=== PATIENT | female | born 1950 ===

== ENCOUNTER 2019-05-18 21:12 | Inpatient (IN) | payer MEDICARE, OTHER ==
[~2019-05-18] VITALS: Ht 172.7 cm; Wt 120.0 kg
[~2019-05-18 21:12] MED LIST: AMOX-291 PO; AMOX1TAB12 PO; ASCO500C2 PO; ASPI-496 PO; CEFD300C37 PO; CHOL10003 PO; INSU100I29 SQ; INSU100V11 SQ-INSULIN; INSU100V13 SQ-INSULIN; LISI-170 PO; MELO15TA24 PO; METF-365 PO; MORP20CA18 PO; NAPR-685; NPH,100V5; OXYB5TAB10 PO; OXYC5TAB3 PO; SULF-169 PO; TRAM50TA2 PO
[2019-05-18 22:10] LABS: BASOPHILS % (AUTO) 0 % (0-1); EOSINOPHILS % (AUTO) 0 % (1-7); LYMPHOCYTES # (AUTO) 0.36 x10^3/uL (1-3.4); LYMPHOCYTES % (AUTO) 3 % (22-44); MD NO; MEAN CORPUSCULAR HGB CONC 33.3 g/dL (32.4-35.8); MEAN CORPUSCULAR VOLUME 90.1 fL (80-100); MEAN PLATELET VOLUME 8.1 fL (7.4-10.4); MONOCYTES # (AUTO) 0.46 x10^3/uL (0.2-0.8); MONOCYTES % (AUTO) 3 % (2-9); NEUTROPHILS # (AUTO) 13.57 x10^3/uL (1.8-6.8); NEUTROPHILS % (AUTO) 94 % (42-75); PLATELET COUNT 161 x10^3/uL (130-400); RED BLOOD COUNT 5.21 x10^6/uL (3.82-5.3); RED CELL DISTRIBUTION WIDTH 14.2 % (9.6-15.2)
[2019-05-18 22:21] LABS: ANION GAP 7 mmol/L (5-15); CALCIUM 8.8 mg/dL (8.5-10.1); CHLORIDE 105 mmol/L (98-107); CREATININE 1.24 mg/dL (0.55-1.02)
[2019-05-18] MEDS ORDERED: LEVEMIR (22:28)
[2019-05-18] MEDS ORDERED: LISINOPRIL PO (22:28)
[2019-05-18] MEDS ORDERED: NOVOLIN (22:28)
[2019-05-18] MEDS ORDERED: TRAM50TA2 PO (22:28)
--- NOTE | 2019-05-18 22:41 | NUR ---
IV STARTED. PT IN HOSPITAL GOWN, ORDERED ABX STARTED, BLOOD CX PREVIOUSLY DRAWN. PT ON CARDIAC AND VITALS MONTIORS. FAMILY AT [facility]
[2019-05-18] MEDS ORDERED: CEFTRIAXONE PMX 1GM/50ML 50 ML ONE (22:46)
[2019-05-18] MEDS ORDERED: CEFTRIAXONE PMX 1GM/50ML 50 ML IV ONE (23:00)
[2019-05-18] MEDS ORDERED: VANCOMYCIN 2,200 MG in SODIUM CHLORIDE 0.9% 500 ML IV ONE (23:00)
[2019-05-18] MEDS ORDERED: VANCOMYCIN PER PHARMACY MC PRN (23:00)
[2019-05-18] MEDS ORDERED: SODIUM CHLORIDE 0.9% 1,000ML IVBOLUS ONE (23:00)
[2019-05-18] MEDS ORDERED: SODIUM CHLORIDE FLUSH 10ML SYR IVF ONE (23:00)
--- NOTE | 2019-05-18 23:30 | NUR ---
NO LACTIC ACID ORDERED AT THIS TIME. ERP MADE AWARE, NO ORDER PLACED, STATED PT DOESN'T NEED AT THIS TIME. 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 WILL CONTINUE TO MONITOR.
--- NOTE | 2019-05-19 00:05 | NUR ---
REPORT TO DOUGLAS WALDEN
--- NOTE | 2019-05-19 00:17 | NUR ---
US BEING DONE AT BEDSIDE.
[2019-05-19] MEDS ORDERED: PROMETHAZINE 25 MG/ML, 1ML IM PRN (00:30)
[2019-05-19] MEDS ORDERED: SODIUM CHLORIDE 0.9% 1,000 ML IV SCH (00:30)
[2019-05-19] MEDS ORDERED: ONDANSETRON 2MG/ML, 2ML IVPush PRN (00:30)
[2019-05-19] MEDS ORDERED: OXYcodone IR 5MG TABLET PO PRN (00:30)
[2019-05-19] MEDS ORDERED: ONDANSETRON ODT 4 MG PO PRN (00:30)
[2019-05-19] MEDS: INSULIN GLARGINE 100 UNITS/ML, PEN SQ-INSULIN SCH ×3 (00:30→22:25)
[2019-05-19] MEDS ORDERED: BISACODYL 10 MG SUPP PR PRN (00:30)
[2019-05-19] MEDS ORDERED: hydrALAzine 20 MG/ML, 1ML IVPush PRN (00:30)
[2019-05-19] MEDS ORDERED: ACETAMINOPHEN 325 MG TABLET PO PRN (00:30)
[2019-05-19] MEDS ORDERED: POLYETHYLENE GLYCOL 17 GM PACKET PO PRN (00:30)
[2019-05-19] MEDS ORDERED: DOCUSATE 100 MG CAPSULE PO PRN (00:30)
[2019-05-19] MEDS ORDERED: VANCOMYCIN PER PHARMACY MC PRN (00:30)
[2019-05-19 00:45] VITALS: BP 135/74
[2019-05-19 00:51] LABS: FREE T4 (FREE THYROXINE) 1.1 ng/dL (0.76-1.46)
[2019-05-19 01:11] LABS: HCT (SEDRATE) 46.9 % (34.6-47.8)
[2019-05-19] MEDS: morphine SULFATE 10 MG/ML, 1ML IVPush PRN ×3 (01:15→18:43)
[2019-05-19] MEDS: INSULIN LISPRO 100 UNITS/ML, PEN SQ-INSULIN SCH ×5 (01:53→22:27)
[2019-05-19] MEDS: ENOXAPARIN 40 MG/0.4 ML SQ SCH (01:53)
[2019-05-19] MEDS: PIPERACILLIN/TAZO/PMX 3.375GM 50 ML IV SCH ×4 (01:55→20:17)
[2019-05-19 06:13] LABS: BASOPHILS # (AUTO) 0.03 x10^3/uL (0-0.1); BASOPHILS % (AUTO) 0 % (0-1); EOSINOPHILS # (AUTO) 0.05 x10^3/uL (0-0.4); EOSINOPHILS % (AUTO) 0 % (1-7); LYMPHOCYTES % (AUTO) 8 % (22-44); MD NO; MEAN CORPUSCULAR HEMOGLOBIN 30.3 pg (27.0-34.8); MEAN CORPUSCULAR HGB CONC 33.5 g/dL (32.4-35.8); MEAN CORPUSCULAR VOLUME 90.5 fL (80-100); MONOCYTES # (AUTO) 0.63 x10^3/uL (0.2-0.8); MONOCYTES % (AUTO) 5 % (2-9); NEUTROPHILS # (AUTO) 11.26 x10^3/uL (1.8-6.8); NEUTROPHILS % (AUTO) 87 % (42-75); PLATELET COUNT 149 x10^3/uL (130-400); RED BLOOD COUNT 4.42 x10^6/uL (3.82-5.3); RED CELL DISTRIBUTION WIDTH 14.5 % (9.6-15.2)
[2019-05-19 06:29] LABS: CHLORIDE 107 mmol/L (98-107)
[2019-05-19] MEDS ORDERED: PHARMACOKINETIC MONITORING MC PRN (06:30)
[2019-05-19] MEDS ORDERED: PHARMACOKINETIC CONSULTATION MC ONE (06:30)
[2019-05-19 06:35] VITALS: BP 117/65
[2019-05-19 06:36] LABS: ALANINE AMINOTRANSFERASE 31 U/L (12-78); ALBUMIN 2.4 g/dL (3.4-5.0); ALKALINE PHOSPHATASE 124 U/L (45-117); ANION GAP 6 mmol/L (5-15); BILIRUBIN,TOTAL 1.2 mg/dL (0.2-1.0); CHOL/HDL RATIO 2.1; CHOLESTEROL, TOTAL 126 mg/dL (140-239); CREATININE 1.07 mg/dL (0.55-1.02); HDL CHOL % 48 % (28-40); HDL CHOLESTEROL (DIRECT) 60 mg/dL (40-60); LDL CHOLESTEROL,CALCULATED 53 mg/dL (54-169); LDL/HDL RATIO 0.9 (0.5-3.0); TOTAL PROTEIN 5.8 g/dL (6.4-8.2); TRIGLYCERIDES 63 mg/dL (50-200); VLDL CHOLESTEROL 13 mg/dL (0-25)
[2019-05-19] MEDS ORDERED: MAGNESIUM SULFATE PMX 2GM/50ML 50 ML IV ONE (08:00)
[2019-05-19 11:01] VITALS: BP 120/60
[2019-05-19 13:19] VITALS: BP 134/64
[2019-05-19] MEDS ORDERED: OXYB15TA PO (14:09)
[2019-05-19] MEDS ORDERED: ASPI-515 PO (14:09)
[2019-05-19] MEDS ORDERED: AMLO10TA8 PO (14:09)
[2019-05-19] MEDS ORDERED: ASCO500C10 PO (14:09)
[2019-05-19] MEDS ORDERED: LISI-420 PO (14:09)
[2019-05-19] MEDS ORDERED: METF500S5 PO (14:09)
[2019-05-19 19:21] VITALS: BP 145/68
[2019-05-19] MEDS: VANCOMYCIN 2,200 MG in SODIUM CHLORIDE 0.9% 500 ML IV SCH (22:01)
[2019-05-20 01:47] VITALS: BP 156/73
[2019-05-20] MEDS: PIPERACILLIN/TAZO/PMX 3.375GM 50 ML IV SCH ×4 (02:41→20:10)
[2019-05-20] MEDS: ENOXAPARIN 40 MG/0.4 ML SQ SCH (02:41)
[2019-05-20 07:00] VITALS: BP 147/76
[2019-05-20] MEDS: INSULIN GLARGINE 100 UNITS/ML, PEN SQ-INSULIN SCH ×2 (08:00→20:11)
[2019-05-20] MEDS: morphine SULFATE 10 MG/ML, 1ML IVPush PRN (08:02)
[2019-05-20] MEDS: INSULIN LISPRO 100 UNITS/ML, PEN SQ-INSULIN SCH ×4 (08:02→20:09)
[2019-05-20 12:33] VITALS: BP 125/71
[2019-05-20 19:05] VITALS: BP 152/79
[2019-05-20] MEDS: VANCOMYCIN 2,200 MG in SODIUM CHLORIDE 0.9% 500 ML IV SCH (22:04)
[2019-05-21 01:59] VITALS: BP 153/77
[2019-05-21] MEDS: ENOXAPARIN 40 MG/0.4 ML SQ SCH (02:03)
[2019-05-21] MEDS: PIPERACILLIN/TAZO/PMX 3.375GM 50 ML IV SCH ×2 (02:05→08:01)
[2019-05-21 07:03] VITALS: BP 139/81
[2019-05-21] MEDS: INSULIN LISPRO 100 UNITS/ML, PEN SQ-INSULIN SCH ×4 (07:56→21:22)
[2019-05-21] MEDS: INSULIN GLARGINE 100 UNITS/ML, PEN SQ-INSULIN SCH ×2 (08:50→21:00)
[2019-05-21 14:01] VITALS: BP 131/85
[2019-05-21] MEDS: ENOXAPARIN 30 MG/0.3 ML SQ SCH (14:18)
[2019-05-21 19:48] VITALS: BP 155/83
[2019-05-21] MEDS: AMOXICILLIN/CLAV 875-125MG TABLET PO SCH (21:21)
[2019-05-22 01:29] VITALS: BP 196/138
[2019-05-22 01:46] VITALS: BP 167/97
[2019-05-22] MEDS: ENOXAPARIN 30 MG/0.3 ML SQ SCH (02:45)
[2019-05-22 03:17] VITALS: BP 158/88
[2019-05-22 04:34] LABS: BASOPHILS # (AUTO) 0.02 x10^3/uL (0-0.1); BASOPHILS % (AUTO) 0 % (0-1); EOSINOPHILS # (AUTO) 0.16 x10^3/uL (0-0.4); EOSINOPHILS % (AUTO) 3 % (1-7); LYMPHOCYTES # (AUTO) 1.32 x10^3/uL (1-3.4); LYMPHOCYTES % (AUTO) 28 % (22-44); MD NO; MEAN CORPUSCULAR HEMOGLOBIN 29.8 pg (27.0-34.8); MEAN CORPUSCULAR HGB CONC 33.3 g/dL (32.4-35.8); MEAN CORPUSCULAR VOLUME 89.7 fL (80-100); MEAN PLATELET VOLUME 7.5 fL (7.4-10.4); MONOCYTES # (AUTO) 0.49 x10^3/uL (0.2-0.8); MONOCYTES % (AUTO) 10 % (2-9); NEUTROPHILS # (AUTO) 2.75 x10^3/uL (1.8-6.8); NEUTROPHILS % (AUTO) 58 % (42-75); PLATELET COUNT 175 x10^3/uL (130-400); RED BLOOD COUNT 4.27 x10^6/uL (3.82-5.3); RED CELL DISTRIBUTION WIDTH 14.7 % (9.6-15.2)
[2019-05-22 04:38] LABS: ALBUMIN 2.3 g/dL (3.4-5.0); ANION GAP 3 mmol/L (5-15); CALCIUM 8.3 mg/dL (8.5-10.1); CHLORIDE 108 mmol/L (98-107); CREATININE 0.81 mg/dL (0.55-1.02)
[2019-05-22 06:50] VITALS: BP 136/76
[2019-05-22] MEDS: INSULIN LISPRO 100 UNITS/ML, PEN SQ-INSULIN SCH ×2 (08:29→12:28)
[2019-05-22] MEDS: AMOXICILLIN/CLAV 875-125MG TABLET PO SCH (08:30)
[2019-05-22] MEDS: INSULIN GLARGINE 100 UNITS/ML, PEN SQ-INSULIN SCH (08:30)
[2019-05-22] MEDS ORDERED: AMOX1TAB12 PO (11:45)
[2019-05-22] MEDS ORDERED: FLU VACC QS2019-20 36MOS UP/PF 0.5 ML IM-VACC ONE (13:00)
[2019-05-22 13:44] VITALS: BP 151/78
== END 2019-05-22 15:35 | disposition home or self-care (01) | DRG 871 ==
LOC: ED 22:00 → EDIP 23:30 → 3N 05-19 01:05 → DCLOUNGE 05-22 15:30
PROVIDERS: ADMIT Internal Medicine; ATTEND Internal Medicine
DX: A41.9 Sepsis, unspecified organism (principal); N17.0 Acute kidney failure with tubular necrosis; L03.116 Cellulitis of left lower limb; Z68.41 Body mass index [BMI] 40.0-44.9, adult; E11.65 Type 2 diabetes mellitus with hyperglycemia; E66.01 Morbid (severe) obesity due to excess calories; I10 Essential (primary) hypertension; I87.2 Venous insufficiency (chronic) (peripheral); Z79.4 Long term (current) use of insulin; Z90.710 Acquired absence of both cervix and uterus; Z90.49 Acquired absence of other specified parts of digestive tract
CPT/HCPCS: 36415; 80048; 80053; 80061; 80069; 82962; 83036; 83735; 84439; 84443; 85025; 85651; 86140; 87040; 90686; 93005; 96365; 96375; G0378; J0696; J1650; J2543; J3370; J1815; J2270; J3475; J7030; J7040

== ENCOUNTER 2019-08-12 10:05 | Inpatient (IN) | payer MEDICARE ==
[~2019-08-12] VITALS: Ht 172.7 cm; Wt 115.0 kg
[~2019-08-12 10:05] MED LIST changes: +AMLO10TA8 PO; +ASCO500C10 PO; +ASPI-515 PO; +LEVEMIR; +LISI-420 PO; +LISINOPRIL PO; +METF500S5 PO; +NOVOLIN; +OXYB15TA PO
[2019-08-12] MEDS ORDERED: METFORMIN (10:23)
[2019-08-12] MEDS ORDERED: LEVEMIR (10:23)
[2019-08-12] MEDS ORDERED: DOCUSATE (10:23)
[2019-08-12] MEDS ORDERED: NOVOLIN (10:23)
[2019-08-12] MEDS ORDERED: SODIUM CHLORIDE 0.9% 1,000ML IVBOLUS ONE (10:30)
[2019-08-12 10:48] LABS: FIO2 ROOM AIR %; PH, VENOUS 7.388 pH (7.320-7.420)
--- NOTE | 2019-08-12 10:51 | NUR ---
BLS CX BAND ON PT WRIST. NS HUNG, INFUSING W=-O, IV SITE PATENT. PT SON, KAMILA, IN ROOM.
[2019-08-12 10:55] LABS: MEAN CORPUSCULAR HEMOGLOBIN 29.8 pg (27.0-34.8); MEAN CORPUSCULAR HGB CONC 33.5 g/dL (32.4-35.8); MEAN CORPUSCULAR VOLUME 89.1 fL (80-100); MEAN PLATELET VOLUME 7.7 fL (7.4-10.4); PLATELET COUNT 184 x10^3/uL (130-400); RED BLOOD COUNT 4.72 x10^6/uL (3.82-5.3); RED CELL DISTRIBUTION WIDTH 13.4 % (9.6-15.2)
[2019-08-12 11:00] LABS: ALANINE AMINOTRANSFERASE 35 U/L (12-78); ALBUMIN 2.9 g/dL (3.4-5.0); ANION GAP 9 mmol/L (5-15); CALCIUM 8.2 mg/dL (8.5-10.1); CHLORIDE 103 mmol/L (98-107); CREATININE 1.25 mg/dL (0.55-1.02)
[2019-08-12] MEDS ORDERED: PLEASE ENTER ALLERGIES MC SCH (11:00)
[2019-08-12 11:03] LABS: ALKALINE PHOSPHATASE 251 U/L (45-117); BILIRUBIN,TOTAL 0.6 mg/dL (0.2-1.0); TOTAL PROTEIN 7.4 g/dL (6.4-8.2)
[2019-08-12 11:12] LABS: BASOPHILS % (AUTO) 0 % (0-1); EOSINOPHILS # (AUTO) 0.01 x10^3/uL (0-0.4); EOSINOPHILS % (AUTO) 0 % (1-7); LYMPHOCYTES % (AUTO) 3 % (22-44); MD SCAN; MONOCYTES # (AUTO) 0.88 x10^3/uL (0.2-0.8); MONOCYTES % (AUTO) 6 % (2-9); NEUTROPHILS # (AUTO) 14.85 x10^3/uL (1.8-6.8); NEUTROPHILS % (AUTO) 92 % (42-75)
[2019-08-12] MEDS ORDERED: AMPICILLIN/SULBACTAM 3 GM in SODIUM CHLORIDE 0.9% 100 ML IV ONE (11:30)
[2019-08-12] MEDS ORDERED: CEFTRIAXONE PMX 1GM/50ML 50 ML IV SCH (12:00)
[2019-08-12] MEDS ORDERED: DEXTROSE 50%, 50ML SYRINGE IVPush PRN (12:00)
[2019-08-12] MEDS ORDERED: ONDANSETRON 2MG/ML, 2ML IVPush PRN (12:00)
[2019-08-12] MEDS ORDERED: INSULIN LISPRO 100 UNIT/ML, 3ML VIAL SQ-INSULIN ONE (12:00)
[2019-08-12] MEDS ORDERED: ONDANSETRON ODT 4 MG PO PRN (12:00)
[2019-08-12] MEDS ORDERED: INSULIN GLARGINE 100 UNITS/ML, PEN SQ-INSULIN SCH (12:00)
[2019-08-12] MEDS ORDERED: DEXTROSE 4 GM TAB.CHEW PO PRN (12:00)
[2019-08-12] MEDS ORDERED: OXYcodone IR 5MG TABLET PO PRN (12:00)
[2019-08-12] MEDS ORDERED: VANCOMYCIN PER PHARMACY MC PRN (12:00)
[2019-08-12] MEDS ORDERED: morphine SULFATE 10 MG/ML, 1ML IVPush PRN (12:00)
[2019-08-12] MEDS ORDERED: hydrALAzine 20 MG/ML, 1ML IVPush PRN (12:00)
[2019-08-12] MEDS ORDERED: BACLOFEN 10 MG TABLET PO PRN (12:00)
[2019-08-12] MEDS ORDERED: GLUCAGON 1 MG IM PRN (12:00)
[2019-08-12] MEDS ORDERED: ACETAMINOPHEN 325 MG TABLET PO PRN (12:00)
--- NOTE | 2019-08-12 12:09 | NUR ---
RESTING QUIETLY ON BED.
--- NOTE | 2019-08-12 12:22 | NUR ---
PT TO MRI PER RAOUL
[2019-08-12] MEDS ORDERED: CEFTRIAXONE PMX 1GM/50ML 50 ML ONE (12:37)
[2019-08-12] MEDS ORDERED: HEPARIN 5,000 UNITS/ML, 1ML ONE (12:37)
[2019-08-12] MEDS: SODIUM CHLORIDE 0.9% 1,000 ML IV SCH (13:39)
--- NOTE | 2019-08-12 13:40 | NUR ---
POOJA MARIE, INFUSING AT 11532PS/HR; SITE PATENT. XR NOW BS.
--- NOTE | 2019-08-12 13:54 | NUR ---
BRIAN MARIE, INFUSING AT 200ML/HR VIA PUMP. REGISTRATION BS
[2019-08-12] MEDS: HEPARIN 5,000 UNITS/ML, 1ML SQ SCH ×2 (13:59→22:32)
--- NOTE | 2019-08-12 14:00 | NUR ---
WATER PROVIDED TO PT
--- NOTE | 2019-08-12 14:06 | NUR ---
HUMALOG PEN ORDERED FROM PHARMACY
[2019-08-12] MEDS ORDERED: INSULIN LISPRO 100 UNITS/ML, PEN SQ-INSULIN ONE (14:30)
--- NOTE | 2019-08-12 14:32 | NUR ---
UNASYN INFUSED. ROCEPHIN HUNG; INFUSING AT 100ML/HR VIA PUMP. IV SITE PATENT. PT DOZING; EASILY AWAKENED. TV ON, CALL LIGHT W/IN REACH, SIDE RAILS UP X2
--- NOTE | 2019-08-12 15:13 | NUR ---
FBS 383. HUMALOG PEN 10 UNITS SQ TO LT UPPER ARM. PT'S SON HERE W/ PT MEDS. ADVISED PT NOT TO TAKE HER MEDS UNTIL CLEARED BY HOSPITALIST; UNDERSTANDING VERBALIZED.
--- NOTE | 2019-08-12 15:25 | NUR ---
PT REPORT TO IRAM CROW FOR ROOM 343
--- NOTE | 2019-08-12 15:31 | NUR ---
LATE ENTRY: HUMALOG NOT GIVEN DURING 1200 HOUR PT WENT TO MRI. HUMALOG GIVEN TO PT AFTER RETURN TO ED AND FBS LEVEL OBTAINED.
--- NOTE | 2019-08-12 16:09 | NUR ---
PT STILL AWAITING TRANSPORT TO FLOOR
[2019-08-12] MEDS ORDERED: PHARMACOKINETIC MONITORING MC PRN (17:00)
[2019-08-12] MEDS: INSULIN LISPRO 100 UNITS/ML, PEN SQ-INSULIN SCH ×2 (17:24→22:32)
[2019-08-12] MEDS ORDERED: VANCOMYCIN 1,800 MG in SODIUM CHLORIDE 0.9% 250 ML IV SCH (17:30)
[2019-08-12 20:05] VITALS: BP 135/74
[2019-08-12] MEDS: SODIUM CHLORIDE FLUSH 10ML SYR IVF SCH (22:32)
[2019-08-12] MEDS: INSULIN GLARGINE 100 UNITS/ML, PEN SQ-INSULIN SCH (22:33)
[2019-08-13 01:34] VITALS: BP 135/73
[2019-08-13] MEDS: SODIUM CHLORIDE 0.9% 1,000 ML IV SCH ×2 (05:43→15:31)
[2019-08-13] MEDS: HEPARIN 5,000 UNITS/ML, 1ML SQ SCH ×3 (05:44→22:49)
[2019-08-13 06:21] LABS: ANION GAP 5 mmol/L (5-15); CHLORIDE 107 mmol/L (98-107)
[2019-08-13 06:24] LABS: CREATININE 1.02 mg/dL (0.55-1.02)
[2019-08-13 06:37] LABS: BASOPHILS % (AUTO) 0 % (0-1); EOSINOPHILS # (AUTO) 0.06 x10^3/uL (0-0.4); EOSINOPHILS % (AUTO) 1 % (1-7); LYMPHOCYTES # (AUTO) 1.13 x10^3/uL (1-3.4); LYMPHOCYTES % (AUTO) 9 % (22-44); MD NO; MEAN CORPUSCULAR HEMOGLOBIN 29.7 pg (27.0-34.8); MEAN CORPUSCULAR HGB CONC 32.9 g/dL (32.4-35.8); MEAN CORPUSCULAR VOLUME 90.3 fL (80-100); MONOCYTES # (AUTO) 0.51 x10^3/uL (0.2-0.8); MONOCYTES % (AUTO) 4 % (2-9); NEUTROPHILS # (AUTO) 10.42 x10^3/uL (1.8-6.8); NEUTROPHILS % (AUTO) 86 % (42-75); PLATELET COUNT 163 x10^3/uL (130-400); RED BLOOD COUNT 4.21 x10^6/uL (3.82-5.3); RED CELL DISTRIBUTION WIDTH 14.1 % (9.6-15.2)
[2019-08-13] MEDS: INSULIN LISPRO 100 UNITS/ML, PEN SQ-INSULIN SCH ×4 (08:28→21:33)
[2019-08-13] MEDS: SODIUM CHLORIDE FLUSH 10ML SYR IVF SCH ×2 (08:29→21:33)
[2019-08-13] MEDS: INSULIN GLARGINE 100 UNITS/ML, PEN SQ-INSULIN SCH ×2 (08:29→21:32)
[2019-08-13 08:39] VITALS: BP 157/72
[2019-08-13] MEDS: PIPERACILLIN/TAZO/PMX 3.375GM 50 ML IV SCH ×3 (11:47→22:49)
[2019-08-13] MEDS ORDERED: CEFTRIAXONE PMX 2GM/50ML 50 ML IV SCH (12:00)
[2019-08-13 14:03] VITALS: BP 131/72
[2019-08-13 21:39] VITALS: BP 126/81
[2019-08-14] MEDS: SODIUM CHLORIDE 0.9% 1,000 ML IV SCH (02:35)
[2019-08-14] MEDS: PIPERACILLIN/TAZO/PMX 3.375GM 50 ML IV SCH ×3 (05:15→19:47)
[2019-08-14 06:51] LABS: BASOPHILS # (AUTO) 0.01 x10^3/uL (0-0.1); BASOPHILS % (AUTO) 0 % (0-1); EOSINOPHILS # (AUTO) 0.19 x10^3/uL (0-0.4); EOSINOPHILS % (AUTO) 4 % (1-7); LYMPHOCYTES # (AUTO) 1.16 x10^3/uL (1-3.4); LYMPHOCYTES % (AUTO) 26 % (22-44); MD NO; MEAN CORPUSCULAR HGB CONC 33.3 g/dL (32.4-35.8); MEAN CORPUSCULAR VOLUME 89.9 fL (80-100); MEAN PLATELET VOLUME 7.9 fL (7.4-10.4); MONOCYTES # (AUTO) 0.46 x10^3/uL (0.2-0.8); MONOCYTES % (AUTO) 10 % (2-9); NEUTROPHILS # (AUTO) 2.72 x10^3/uL (1.8-6.8); NEUTROPHILS % (AUTO) 60 % (42-75); PLATELET COUNT 159 x10^3/uL (130-400); RED BLOOD COUNT 3.98 x10^6/uL (3.82-5.3); RED CELL DISTRIBUTION WIDTH 13.9 % (9.6-15.2)
[2019-08-14 06:58] LABS: ALBUMIN 2.3 g/dL (3.4-5.0); ANION GAP 4 mmol/L (5-15); CALCIUM 8.6 mg/dL (8.5-10.1); CHLORIDE 110 mmol/L (98-107)
[2019-08-14] MEDS: INSULIN LISPRO 100 UNITS/ML, PEN SQ-INSULIN SCH ×4 (07:00→22:57)
[2019-08-14 07:02] LABS: ALANINE AMINOTRANSFERASE 28 U/L (12-78); ALKALINE PHOSPHATASE 147 U/L (45-117); BILIRUBIN,TOTAL 0.9 mg/dL (0.2-1.0); CREATININE 0.98 mg/dL (0.55-1.02); TOTAL PROTEIN 6.4 g/dL (6.4-8.2)
[2019-08-14] MEDS: HEPARIN 5,000 UNITS/ML, 1ML SQ SCH ×2 (07:48→18:05)
[2019-08-14] MEDS: INSULIN GLARGINE 100 UNITS/ML, PEN SQ-INSULIN SCH ×3 (07:48→23:46)
[2019-08-14] MEDS: ASPIRIN 81 MG TABLET CHEW PO SCH (07:49)
[2019-08-14] MEDS: LISINOPRIL 20 MG TABLET PO SCH (07:49)
[2019-08-14] MEDS: SODIUM CHLORIDE FLUSH 10ML SYR IVF SCH ×2 (07:49→21:00)
[2019-08-14] MEDS: AMLODIPINE 5 MG TABLET PO SCH (07:49)
[2019-08-14] MEDS: OXYBUTYNIN CHLORIDE 5 MG TABLET PO SCH ×3 (07:49→22:56)
[2019-08-14 07:52] VITALS: BP 146/68
[2019-08-14 09:55] LABS: HCT (SEDRATE) 35.8 % (34.6-47.8)
[2019-08-14 13:21] VITALS: BP 143/69
[2019-08-14] MEDS ORDERED: CARVEDILOL 3.125 MG TABLET ONE (18:00)
[2019-08-14] MEDS: FUROSEMIDE 20 MG TABLET PO SCH (18:05)
[2019-08-14 19:42] VITALS: BP 167/78
[2019-08-15 01:29] VITALS: BP 123/79
[2019-08-15] MEDS: PIPERACILLIN/TAZO/PMX 3.375GM 50 ML IV SCH ×2 (02:21→09:01)
[2019-08-15] MEDS: HEPARIN 5,000 UNITS/ML, 1ML SQ SCH ×3 (02:21→17:22)
[2019-08-15] MEDS: INSULIN LISPRO 100 UNITS/ML, PEN SQ-INSULIN SCH ×4 (07:00→21:51)
[2019-08-15 07:41] VITALS: BP 129/72
[2019-08-15] MEDS: SODIUM CHLORIDE FLUSH 10ML SYR IVF SCH ×2 (09:00→21:52)
[2019-08-15] MEDS: LISINOPRIL 20 MG TABLET PO SCH (09:01)
[2019-08-15] MEDS: FUROSEMIDE 20 MG TABLET PO SCH ×2 (09:01→17:22)
[2019-08-15] MEDS: ASPIRIN 81 MG TABLET CHEW PO SCH (09:01)
[2019-08-15] MEDS: OXYBUTYNIN CHLORIDE 5 MG TABLET PO SCH ×3 (09:01→21:52)
[2019-08-15] MEDS: AMLODIPINE 5 MG TABLET PO SCH (09:01)
[2019-08-15] MEDS: INSULIN GLARGINE 100 UNITS/ML, PEN SQ-INSULIN SCH ×2 (09:02→21:51)
[2019-08-15] MEDS: CEFTRIAXONE PMX 2GM/50ML 50 ML IV SCH (13:21)
[2019-08-15 14:03] VITALS: BP 115/69
[2019-08-15 19:57] VITALS: BP 159/77
[2019-08-16] MEDS: HEPARIN 5,000 UNITS/ML, 1ML SQ SCH ×3 (01:39→17:40)
[2019-08-16 03:33] VITALS: BP 109/65
[2019-08-16 07:31] VITALS: BP 116/68
[2019-08-16] MEDS: SODIUM CHLORIDE FLUSH 10ML SYR IVF SCH ×2 (09:00→21:00)
[2019-08-16] MEDS ORDERED: INSULIN GLARGINE 100 UNITS/ML, PEN SQ-INSULIN SCH (09:00)
[2019-08-16] MEDS: INSULIN LISPRO 100 UNITS/ML, PEN SQ-INSULIN SCH ×4 (09:07→19:40)
[2019-08-16] MEDS: ASPIRIN 81 MG TABLET CHEW PO SCH (09:08)
[2019-08-16] MEDS: INSULIN GLARGINE 100 UNITS/ML, PEN SQ-INSULIN SCH ×3 (09:08→19:41)
[2019-08-16] MEDS: LISINOPRIL 20 MG TABLET PO SCH (09:08)
[2019-08-16] MEDS: OXYBUTYNIN CHLORIDE 5 MG TABLET PO SCH ×3 (09:08→19:40)
[2019-08-16] MEDS: AMLODIPINE 5 MG TABLET PO SCH (09:08)
[2019-08-16] MEDS: FUROSEMIDE 20 MG TABLET PO SCH ×2 (09:08→16:31)
[2019-08-16] MEDS: CEFTRIAXONE PMX 2GM/50ML 50 ML IV SCH (13:19)
[2019-08-16 14:06] VITALS: BP 112/58
[2019-08-16 20:09] VITALS: BP 123/70
[2019-08-17 01:02] VITALS: BP 120/74
[2019-08-17] MEDS: HEPARIN 5,000 UNITS/ML, 1ML SQ SCH ×3 (02:07→17:18)
[2019-08-17 07:22] VITALS: BP 114/71
[2019-08-17] MEDS: OXYBUTYNIN CHLORIDE 5 MG TABLET PO SCH ×3 (08:56→22:16)
[2019-08-17] MEDS: SODIUM CHLORIDE FLUSH 10ML SYR IVF SCH ×2 (08:56→21:00)
[2019-08-17] MEDS: LISINOPRIL 20 MG TABLET PO SCH (08:56)
[2019-08-17] MEDS: AMLODIPINE 5 MG TABLET PO SCH (08:56)
[2019-08-17] MEDS: FUROSEMIDE 20 MG TABLET PO SCH ×2 (08:56→15:49)
[2019-08-17] MEDS: ASPIRIN 81 MG TABLET CHEW PO SCH (08:56)
[2019-08-17] MEDS: INSULIN LISPRO 100 UNITS/ML, PEN SQ-INSULIN SCH ×4 (08:57→22:18)
[2019-08-17] MEDS: INSULIN GLARGINE 100 UNITS/ML, PEN SQ-INSULIN SCH ×2 (08:58→22:17)
[2019-08-17] MEDS: CEFTRIAXONE PMX 2GM/50ML 50 ML IV SCH (13:32)
[2019-08-17 14:13] VITALS: BP 139/80
[2019-08-17 19:09] VITALS: BP 128/78
[2019-08-17 19:28] LABS: MICROSCOPIC AUTO
[2019-08-18] MEDS: HEPARIN 5,000 UNITS/ML, 1ML SQ SCH ×3 (01:38→17:14)
[2019-08-18 01:52] VITALS: BP 116/54
[2019-08-18 03:27] VITALS: BP 156/63
[2019-08-18 08:30] VITALS: BP 148/72
[2019-08-18] MEDS: INSULIN LISPRO 100 UNITS/ML, PEN SQ-INSULIN SCH ×4 (08:36→22:29)
[2019-08-18] MEDS: INSULIN GLARGINE 100 UNITS/ML, PEN SQ-INSULIN SCH (08:37)
[2019-08-18] MEDS: SODIUM CHLORIDE FLUSH 10ML SYR IVF SCH ×2 (08:38→21:00)
[2019-08-18] MEDS: LISINOPRIL 20 MG TABLET PO SCH (08:38)
[2019-08-18] MEDS: FUROSEMIDE 20 MG TABLET PO SCH ×2 (08:38→16:19)
[2019-08-18] MEDS: ASPIRIN 81 MG TABLET CHEW PO SCH (08:38)
[2019-08-18] MEDS: AMLODIPINE 5 MG TABLET PO SCH (08:38)
[2019-08-18] MEDS: OXYBUTYNIN CHLORIDE 5 MG TABLET PO SCH ×3 (08:38→22:28)
[2019-08-18] MEDS: CEFTRIAXONE PMX 2GM/50ML 50 ML IV SCH (13:28)
[2019-08-18 13:44] VITALS: BP 116/70
[2019-08-18 20:00] VITALS: BP 123/72
[2019-08-19 00:30] VITALS: BP 133/71
[2019-08-19] MEDS: HEPARIN 5,000 UNITS/ML, 1ML SQ SCH ×3 (02:42→17:11)
[2019-08-19 07:14] VITALS: BP 112/58
[2019-08-19] MEDS: FUROSEMIDE 20 MG TABLET PO SCH ×2 (07:35→16:11)
[2019-08-19] MEDS: INSULIN LISPRO 100 UNITS/ML, PEN SQ-INSULIN SCH ×4 (08:33→20:39)
[2019-08-19] MEDS: INSULIN GLARGINE 100 UNITS/ML, PEN SQ-INSULIN SCH (08:34)
[2019-08-19] MEDS: OXYBUTYNIN CHLORIDE 5 MG TABLET PO SCH ×3 (08:34→20:39)
[2019-08-19] MEDS: ASPIRIN 81 MG TABLET CHEW PO SCH (08:35)
[2019-08-19] MEDS: SODIUM CHLORIDE FLUSH 10ML SYR IVF SCH ×2 (08:35→20:40)
[2019-08-19] MEDS: LISINOPRIL 20 MG TABLET PO SCH (08:35)
[2019-08-19] MEDS: AMLODIPINE 5 MG TABLET PO SCH (08:35)
[2019-08-19] MEDS: CEFTRIAXONE PMX 2GM/50ML 50 ML IV SCH (13:39)
[2019-08-19 14:20] VITALS: BP 105/66
[2019-08-19 19:38] VITALS: BP 146/76
[2019-08-20 00:53] VITALS: BP 113/71
[2019-08-20] MEDS: HEPARIN 5,000 UNITS/ML, 1ML SQ SCH ×3 (02:18→17:15)
[2019-08-20] MEDS: INSULIN LISPRO 100 UNITS/ML, PEN SQ-INSULIN SCH ×4 (07:00→20:14)
[2019-08-20] MEDS: FUROSEMIDE 20 MG TABLET PO SCH ×2 (07:22→16:05)
[2019-08-20 08:00] VITALS: BP 113/70
[2019-08-20] MEDS: INSULIN GLARGINE 100 UNITS/ML, PEN SQ-INSULIN SCH (08:56)
[2019-08-20] MEDS ORDERED: INSULIN GLARGINE 100 UNITS/ML, PEN SQ-INSULIN ONE (09:00)
[2019-08-20] MEDS: OXYBUTYNIN CHLORIDE 5 MG TABLET PO SCH ×3 (09:39→20:15)
[2019-08-20] MEDS: AMLODIPINE 5 MG TABLET PO SCH (09:39)
[2019-08-20] MEDS: SODIUM CHLORIDE FLUSH 10ML SYR IVF SCH ×2 (09:39→20:15)
[2019-08-20] MEDS: ASPIRIN 81 MG TABLET CHEW PO SCH (09:39)
[2019-08-20] MEDS: LISINOPRIL 20 MG TABLET PO SCH (09:39)
[2019-08-20] MEDS: CEFTRIAXONE PMX 2GM/50ML 50 ML IV SCH (13:25)
[2019-08-20 15:12] VITALS: BP 119/73
[2019-08-20] MEDS ORDERED: SIMETHICONE 80 MG CHEW TAB PO ONE (17:30)
[2019-08-20] MEDS ORDERED: DOCUSATE 100 MG CAPSULE PO SCH (18:00)
[2019-08-20 19:04] VITALS: BP 111/69
[2019-08-21 02:18] VITALS: BP 111/64
[2019-08-21] MEDS: HEPARIN 5,000 UNITS/ML, 1ML SQ SCH ×3 (03:13→18:24)
[2019-08-21 03:58] LABS: BASOPHILS # (AUTO) 0.02 x10^3/uL (0-0.1); BASOPHILS % (AUTO) 0 % (0-1); EOSINOPHILS # (AUTO) 0.21 x10^3/uL (0-0.4); EOSINOPHILS % (AUTO) 4 % (1-7); LYMPHOCYTES # (AUTO) 1.82 x10^3/uL (1-3.4); LYMPHOCYTES % (AUTO) 36 % (22-44); MD NO; MEAN CORPUSCULAR HEMOGLOBIN 29.9 pg (27.0-34.8); MEAN CORPUSCULAR HGB CONC 33.4 g/dL (32.4-35.8); MEAN CORPUSCULAR VOLUME 89.4 fL (80-100); MEAN PLATELET VOLUME 7.8 fL (7.4-10.4); MONOCYTES # (AUTO) 0.45 x10^3/uL (0.2-0.8); MONOCYTES % (AUTO) 9 % (2-9); NEUTROPHILS % (AUTO) 50 % (42-75); PLATELET COUNT 259 x10^3/uL (130-400)
[2019-08-21 03:59] LABS: HCT (SEDRATE) 37.7 % (34.6-47.8)
[2019-08-21 04:03] LABS: ALANINE AMINOTRANSFERASE 36 U/L (12-78); ALBUMIN 2.7 g/dL (3.4-5.0); ANION GAP 6 mmol/L (5-15); C-REACTIVE PROTEIN, QUANT 0.79 mg/dL (0.02-0.49); CALCIUM 8.8 mg/dL (8.5-10.1); CHLORIDE 104 mmol/L (98-107); CREATININE 1.25 mg/dL (0.55-1.02)
[2019-08-21 04:06] LABS: ALKALINE PHOSPHATASE 185 U/L (45-117); BILIRUBIN,TOTAL 0.3 mg/dL (0.2-1.0); TOTAL PROTEIN 7.3 g/dL (6.4-8.2)
[2019-08-21] MEDS: FUROSEMIDE 20 MG TABLET PO SCH ×2 (08:34→16:52)
[2019-08-21] MEDS: OXYBUTYNIN CHLORIDE 5 MG TABLET PO SCH ×3 (08:34→21:48)
[2019-08-21] MEDS: AMLODIPINE 5 MG TABLET PO SCH (08:34)
[2019-08-21] MEDS: ASPIRIN 81 MG TABLET CHEW PO SCH (08:34)
[2019-08-21] MEDS: INSULIN LISPRO 100 UNITS/ML, PEN SQ-INSULIN SCH ×4 (08:35→21:49)
[2019-08-21] MEDS: SODIUM CHLORIDE FLUSH 10ML SYR IVF SCH ×2 (08:36→21:48)
[2019-08-21] MEDS: INSULIN GLARGINE 100 UNITS/ML, PEN SQ-INSULIN SCH ×2 (08:37→13:01)
[2019-08-21 08:46] VITALS: BP 119/51
[2019-08-21] MEDS: SODIUM CHLORIDE 0.9% 1,000 ML IV SCH ×2 (09:33→21:48)
[2019-08-21] MEDS: CEFTRIAXONE PMX 2GM/50ML 50 ML IV SCH (13:02)
[2019-08-21 14:20] VITALS: BP 134/58
[2019-08-22] VITALS (7 sets, daily range): BP systolic 108–151; BP diastolic 53–89
[2019-08-22] MEDS: HEPARIN 5,000 UNITS/ML, 1ML SQ SCH ×3 (03:16→17:18)
[2019-08-22 04:01] LABS: ALBUMIN 2.5 g/dL (3.4-5.0); ANION GAP 5 mmol/L (5-15); CALCIUM 8.6 mg/dL (8.5-10.1); CHLORIDE 119 mmol/L (98-107)
[2019-08-22 04:06] LABS: ALANINE AMINOTRANSFERASE 37 U/L (12-78); ALKALINE PHOSPHATASE 178 U/L (45-117); BILIRUBIN,TOTAL 0.3 mg/dL (0.2-1.0); TOTAL PROTEIN 7.1 g/dL (6.4-8.2)
[2019-08-22] MEDS: INSULIN LISPRO 100 UNITS/ML, PEN SQ-INSULIN SCH ×4 (07:00→21:55)
[2019-08-22] MEDS: FUROSEMIDE 20 MG TABLET PO SCH ×2 (08:00→09:28)
[2019-08-22 09:09] LABS: ALBUMIN 2.8 g/dL (3.4-5.0); ANION GAP 5 mmol/L (5-15); CALCIUM 8.8 mg/dL (8.5-10.1); CHLORIDE 108 mmol/L (98-107)
[2019-08-22 09:14] LABS: ALANINE AMINOTRANSFERASE 34 U/L (12-78); ALKALINE PHOSPHATASE 177 U/L (45-117); BILIRUBIN,TOTAL 0.5 mg/dL (0.2-1.0); CREATININE 1.14 mg/dL (0.55-1.02); TOTAL PROTEIN 7.3 g/dL (6.4-8.2)
[2019-08-22] MEDS: AMLODIPINE 5 MG TABLET PO SCH (09:27)
[2019-08-22] MEDS: ASPIRIN 81 MG TABLET CHEW PO SCH (09:27)
[2019-08-22] MEDS: OXYBUTYNIN CHLORIDE 5 MG TABLET PO SCH ×3 (09:28→21:48)
[2019-08-22] MEDS: SODIUM CHLORIDE FLUSH 10ML SYR IVF SCH ×2 (09:28→21:00)
[2019-08-22] MEDS: SODIUM CHLORIDE 0.45% 1,000 ML IV SCH (09:32)
[2019-08-22] MEDS: INSULIN GLARGINE 100 UNITS/ML, PEN SQ-INSULIN SCH (09:34)
[2019-08-22] MEDS: CEFTRIAXONE PMX 2GM/50ML 50 ML IV SCH (12:32)
[2019-08-23] MEDS: SODIUM CHLORIDE 0.45% 1,000 ML IV SCH (00:04)
[2019-08-23 00:34] VITALS: BP 152/77
[2019-08-23] MEDS: HEPARIN 5,000 UNITS/ML, 1ML SQ SCH ×3 (03:29→16:44)
[2019-08-23 04:02] LABS: ALANINE AMINOTRANSFERASE 35 U/L (12-78); ALBUMIN 2.7 g/dL (3.4-5.0); ANION GAP 2 mmol/L (5-15); CALCIUM 9.1 mg/dL (8.5-10.1); CHLORIDE 109 mmol/L (98-107)
[2019-08-23 04:05] LABS: ALKALINE PHOSPHATASE 176 U/L (45-117); BILIRUBIN,TOTAL 0.4 mg/dL (0.2-1.0); CREATININE 0.95 mg/dL (0.55-1.02); TOTAL PROTEIN 7.3 g/dL (6.4-8.2)
[2019-08-23] MEDS: INSULIN LISPRO 100 UNITS/ML, PEN SQ-INSULIN SCH ×4 (07:00→21:05)
[2019-08-23] MEDS: OXYBUTYNIN CHLORIDE 5 MG TABLET PO SCH ×3 (08:04→21:03)
[2019-08-23] MEDS: LISINOPRIL 20 MG TABLET PO SCH ×2 (08:04→21:00)
[2019-08-23] MEDS: AMLODIPINE 5 MG TABLET PO SCH (08:04)
[2019-08-23] MEDS: ASPIRIN 81 MG TABLET CHEW PO SCH (08:04)
[2019-08-23] MEDS: SODIUM CHLORIDE FLUSH 10ML SYR IVF SCH ×2 (08:05→21:05)
[2019-08-23 08:27] VITALS: BP 154/72
[2019-08-23] MEDS: INSULIN GLARGINE 100 UNITS/ML, PEN SQ-INSULIN SCH (09:34)
[2019-08-23] MEDS: CEFTRIAXONE PMX 2GM/50ML 50 ML IV SCH (12:36)
[2019-08-23 13:46] VITALS: BP 136/69
[2019-08-23 20:23] VITALS: BP 117/74
[2019-08-23] MEDS ORDERED: ROCKLATAN EACHEYE SCH (23:00)
[2019-08-23] MEDS ORDERED: SODIUM CHLORIDE NASAL SPRAY 45ML BOTTLE NAS PRN (23:00)
[2019-08-24 01:24] VITALS: BP 124/69
[2019-08-24] MEDS: HEPARIN 5,000 UNITS/ML, 1ML SQ SCH ×2 (02:17→08:08)
[2019-08-24] MEDS: INSULIN LISPRO 100 UNITS/ML, PEN SQ-INSULIN SCH ×2 (07:00→11:23)
[2019-08-24 08:00] VITALS: BP 122/83
[2019-08-24] MEDS: OXYBUTYNIN CHLORIDE 5 MG TABLET PO SCH (08:07)
[2019-08-24] MEDS: ASPIRIN 81 MG TABLET CHEW PO SCH (08:07)
[2019-08-24] MEDS ORDERED: INSULIN GLARGINE 100 UNITS/ML, PEN SQ-INSULIN SCH ×2 (09:00)
[2019-08-24] MEDS: SODIUM CHLORIDE FLUSH 10ML SYR IVF SCH (09:00)
[2019-08-24] MEDS ORDERED: INSU100I13 SQ-INSULIN (12:31)
[2019-08-24] MEDS ORDERED: INSU100I11 SQ-INSULIN (12:31)
[2019-08-24] MEDS: CEFTRIAXONE PMX 2GM/50ML 50 ML IV SCH (12:51)
== END 2019-08-24 15:15 | disposition home health service (06) | DRG 871 ==
LOC: ED 11:43 → MERGE 11:44 → EDIP 11:44 → ED 12:24 → 3N 16:27 → DCLOUNGE 08-24 14:58
PROVIDERS: ADMIT Hospitalist; ATTEND Internal Medicine
PROC: 02HV33Z Insertion of Infusion Device into Superior Vena Cava, Percutaneous Approach (ICD-10-PCS; principal; 2019-08-16)
PROC: B5181ZA Fluoroscopy of Superior Vena Cava using Low Osmolar Contrast, Guidance (ICD-10-PCS; 2019-08-16)
PROC: B548ZZA Ultrasonography of Superior Vena Cava, Guidance (ICD-10-PCS; 2019-08-16)
DX: A41.51 Sepsis due to Escherichia coli [E. coli] (principal); N17.0 Acute kidney failure with tubular necrosis; L03.116 Cellulitis of left lower limb; L03.115 Cellulitis of right lower limb; E87.1 Hypo-osmolality and hyponatremia; B96.89 Other specified bacterial agents as the cause of diseases classified elsewhere; E11.65 Type 2 diabetes mellitus with hyperglycemia; E66.01 Morbid (severe) obesity due to excess calories; E83.42 Hypomagnesemia; F41.9 Anxiety disorder, unspecified; I10 Essential (primary) hypertension; M65.862 Other synovitis and tenosynovitis, left lower leg; L97.529 Non-pressure chronic ulcer of other part of left foot with unspecified severity; G89.29 Other chronic pain; S92.342A Displaced fracture of fourth metatarsal bone, left foot, initial encounter for closed fracture; X58.XXXA Exposure to other specified factors, initial encounter; Z79.4 Long term (current) use of insulin; Z80.9 Family history of malignant neoplasm, unspecified; Z83.3 Family history of diabetes mellitus; Z87.440 Personal history of urinary (tract) infections; Z90.49 Acquired absence of other specified parts of digestive tract; Z90.710 Acquired absence of both cervix and uterus; Y93.89 Activity, other specified; Y92.89 Other specified places as the place of occurrence of the external cause; Y99.8 Other external cause status; Z68.38 Body mass index [BMI] 38.0-38.9, adult; Z79.899 Other long term (current) drug therapy
CPT/HCPCS: 36415; 36569; 36573; 71045; 80048; 80053; 81001; 82803; 82947; 82962; 83036; 83605; 83690; 83735; 83930; 84100; 85025; 85651; 86140; 87040; 87077; 87186; 90471; 93306; 93970; 96361; 96374; 96375; 99285; G0378; J0295; J0696; J1644; J2543; J3370; C1751; J1815; J7030; J7050

== ENCOUNTER 2019-08-31 09:09 | Outpatient (CLI) | payer MEDICARE ==
[~2019-08-31 09:09] MED LIST changes: +DOCUSATE; +INSU100I11 SQ-INSULIN; +INSU100I13 SQ-INSULIN; +METFORMIN; -OXYB15TA PO; +OXYB15TA18 PO
== END 2019-08-31 23:59 | disposition home or self-care (01) ==
LOC: WOUND 09:09
PROVIDERS: ATTEND Podiatrist Foot & Ankle Surgery
DX: E11.621 Type 2 diabetes mellitus with foot ulcer (principal); L97.522 Non-pressure chronic ulcer of other part of left foot with fat layer exposed; E11.40 Type 2 diabetes mellitus with diabetic neuropathy, unspecified; I10 Essential (primary) hypertension; G89.4 Chronic pain syndrome; Z98.49 Cataract extraction status, unspecified eye; Z90.710 Acquired absence of both cervix and uterus
CPT/HCPCS: 11042; G0463

== ENCOUNTER 2019-09-29 13:28 | Outpatient (CLI) | payer MEDICARE | END 2019-09-29 23:59 | disposition home or self-care (01) | LOC: WOUND 13:28 | PROVIDERS: ATTEND Family Medicine | DX: E11.621 Type 2 diabetes mellitus with foot ulcer (principal); L97.522 Non-pressure chronic ulcer of other part of left foot with fat layer exposed; E11.40 Type 2 diabetes mellitus with diabetic neuropathy, unspecified; I10 Essential (primary) hypertension; G89.4 Chronic pain syndrome; Z98.49 Cataract extraction status, unspecified eye; Z90.710 Acquired absence of both cervix and uterus | CPT/HCPCS: 97597 ==

== ENCOUNTER → 2019-12-14 | Outpatient (CLI) | payer MEDICARE | END | disposition home or self-care (01) | LOC: WOUND 08:59 | PROVIDERS: ATTEND Podiatrist Foot & Ankle Surgery | DX: E11.621 Type 2 diabetes mellitus with foot ulcer (principal); L97.521 Non-pressure chronic ulcer of other part of left foot limited to breakdown of skin; E11.40 Type 2 diabetes mellitus with diabetic neuropathy, unspecified; I10 Essential (primary) hypertension; G89.4 Chronic pain syndrome; E66.01 Morbid (severe) obesity due to excess calories; Z98.49 Cataract extraction status, unspecified eye; Z90.710 Acquired absence of both cervix and uterus; Z68.38 Body mass index [BMI] 38.0-38.9, adult | CPT/HCPCS: 97597; G0463 ==

== ENCOUNTER 2019-12-21 10:00 | Outpatient (CLI) | payer MEDICARE | END 2019-12-21 23:59 | disposition home or self-care (01) | LOC: WOUND 10:00 | PROVIDERS: ATTEND Podiatrist Foot & Ankle Surgery | DX: E11.621 Type 2 diabetes mellitus with foot ulcer (principal); L97.528 Non-pressure chronic ulcer of other part of left foot with other specified severity; E11.40 Type 2 diabetes mellitus with diabetic neuropathy, unspecified; I10 Essential (primary) hypertension; G89.4 Chronic pain syndrome; E66.01 Morbid (severe) obesity due to excess calories; Z98.49 Cataract extraction status, unspecified eye; Z90.710 Acquired absence of both cervix and uterus; Z68.38 Body mass index [BMI] 38.0-38.9, adult | CPT/HCPCS: G0463 ==